=== PATIENT | female | born 1980 | race Caucasian/White ===

== ENCOUNTER 2017-04-19 11:27 | Emergency (ER) | payer MEDICAID ==
[~2017-04-19] VITALS: Ht 162.6 cm; Wt 74.6 kg
[2017-04-19 11:46] VITALS: BP 127/85
[2017-04-19] MEDS ORDERED: METOCLOPRAMIDE 5 MG/ML, 2ML IM ONE (12:30)
[2017-04-19] MEDS ORDERED: DIPHENHYDRAMINE 50 MG/ML, 1ML IM ONE (12:30)
== END 2017-04-19 14:03 | disposition left against medical advice (07) ==
LOC: ED 13:57
DX: R51 Headache (principal); R11.0 Nausea
CPT/HCPCS: 70450

== ENCOUNTER 2017-06-05 18:15 | Emergency (ER) | payer MEDICAID ==
[~2017-06-05] VITALS: Ht 162.6 cm; Wt 76.3 kg
[2017-06-05 18:29] VITALS: BP 117/78
== END 2017-06-05 19:20 | disposition left against medical advice (07) ==
LOC: ED 19:04
DX: K59.00 Constipation, unspecified (principal); N93.9 Abnormal uterine and vaginal bleeding, unspecified; Z53.21 Procedure and treatment not carried out due to patient leaving prior to being seen by health care provider

== ENCOUNTER 2019-04-10 15:38 | Emergency (ER) | payer MEDICAID ==
[~2019-04-10 15:38] MED LIST: No meds per pt.
--- NOTE | 2019-04-10 16:01 | NUR ---
CALLED TO TRIAGE NO ANSWER
--- NOTE | 2019-04-10 16:12 | NUR ---
CALLED FOR TRIAGE NO ANSWER
--- NOTE | 2019-04-10 16:40 | NUR ---
NO ANSWER X 3
== END 2019-04-10 16:42 | disposition left against medical advice (07) ==
LOC: ED 16:36
DX: R21 Rash and other nonspecific skin eruption (principal); Z53.21 Procedure and treatment not carried out due to patient leaving prior to being seen by health care provider